=== PATIENT | female | born 1975 | race Hispanic/Latino ===

== ENCOUNTER → 2018-07-02 | Outpatient (CLI) | payer OTHER | END | disposition home or self-care (01) | LOC: RAH 15:27 | PROVIDERS: ATTEND Family Medicine | DX: Z12.31 Encounter for screening mammogram for malignant neoplasm of breast (principal) | CPT/HCPCS: 77067 ==

== ENCOUNTER → 2019-07-12 | Outpatient (CLI) | payer OTHER | END | disposition home or self-care (01) | LOC: RAH 11:38 | PROVIDERS: ATTEND Obstetrics & Gynecology | DX: Z12.31 Encounter for screening mammogram for malignant neoplasm of breast (principal) | CPT/HCPCS: 77067 ==

== ENCOUNTER 2019-12-30 19:42 | Inpatient (IN) | payer BC, OTHER ==
[~2019-12-30] VITALS: Ht 160 cm; Wt 73.2 kg
[2019-12-30] MEDS ORDERED: ONDANSETRON HCL 4 MG/2 ML VIAL ONE (20:12)
[2019-12-30] MEDS ORDERED: KETOROLAC TROMETHAMINE 30MG/ML ONE (20:12)
[2019-12-30] MEDS ORDERED: MORPHINE SULFATE 4 MG/1ML SYG ONE (20:13)
[2019-12-30] MEDS ORDERED: ACETAMINOPHEN EXTRA STRENGTH 500 MG TABLET ONE (20:13)
[2019-12-30 20:17] LABS: BASOPHILS % (AUTO) 0.3 % (0.0-5.0); EOSINOPHILS % (AUTO) 0.1 % (0.0-8.0); HEMATOCRIT 31.1 % (36-48); LYMPHOCYTES % (AUTO) 7.6 % (21.0-51.0); MEAN CORPUSCULAR HEMOGLOBIN 24.1 pg (27.0-33.0); MEAN CORPUSCULAR HGB CONC 31.5 g/dL (32.0-36.0); MEAN CORPUSCULAR VOLUME 76.6 fL (79-99); MONOCYTES % (AUTO) 4.1 % (3.0-13.0); NEUTROPHILS % (AUTO) 87.5 % (40.0-77.0); PLATELET COUNT (AUTO) 333 K/uL (130-400); RED BLOOD CELL COUNT(AUTO) 4.06 MIL/uL (4.00-5.50); RED CELL DISTRIBUTION WIDTH 15.3 % (11.0-15.5); WHITE BLOOD COUNT (AUTO) 14.2 K/uL (4.8-10.8)
[2019-12-30] MEDS ORDERED: SODIUM CHLORIDE 0.9% 50 ML IV ONE (20:43)
[2019-12-30] MEDS ORDERED: CEFAZOLIN SODIUM 1 GM VIAL ONE (20:43)
[2019-12-30 20:45] LABS: ALBUMIN 3.5 g/dL (3.5-5.0); BILIRUBIN,TOTAL 0.5 mg/dL (0.2-1.0); CREATININE 0.9 mg/dL (0.5-1.5)
[2019-12-30 21:31] LABS: APPEARANCE,URINE Clear (CLEAR); BILIRUBIN,URINE Negative (NEGATIVE); COLOR,URINE Yellow (YELLOW); GLUCOSE, URINE (UA) Negative (NEGATIVE); KETONES,URINE Negative (NEGATIVE); LEUKOCYTE ESTERASE ,URINE Trace (NEGATIVE); NITRATE,URINE Negative (NEGATIVE); OCCULT BLOOD,URINE Trace (NEGATIVE); PH,URINE >=9.0 (5.0-8.0); PROTEIN,URINE Negative (NEGATIVE); UROBILINOGEN,URINE 0.2 mg/dL (0.2-1.0)
[2019-12-30 21:33] LABS: HCG,QUAL RESULT NEGATIVE (NEGATIVE)
[2019-12-30] MEDS ORDERED: POTASSIUM CHLORIDE 20 MEQ ERTAB PO ONE (21:34)
[2019-12-30] MEDS ORDERED: VANCOMYCIN 1GM+NS 250ML 250 ML IV ONE (21:35)
[2019-12-30 21:47] LABS: BACTERIA,URINE Few /HPF (None Seen); MUCUS,URINE Rare LPF (None Seen); RBC,URINE 0-1 /HPF (0-1); SQUAMOUS EPITHELIAL CELL,UR Moderate /HPF (0-2)
[2019-12-30] MEDS ORDERED: ONDANSETRON HCL 4 MG/2 ML VIAL IV PRN (22:00)
[2019-12-30] MEDS ORDERED: LIDOCAINE HCL-MPF 1% 2ML VIAL IV PRN (22:00)
[2019-12-30] MEDS ORDERED: VANCOMYCIN PROTOCOL PER PHARMACY IV PRN (22:00)
[2019-12-30] MEDS ORDERED: POTASSIUM CHLORIDE 20MEQ/100ML 100 ML IV PRN (22:00)
[2019-12-30] MEDS ORDERED: ACETAMINOPHEN 325 MG TAB PO PRN (22:00)
[2019-12-30] MEDS ORDERED: POTASSIUM CHLORIDE 10% ELIXIR 20 MEQ/15 ML UDCUP PO PRN (22:00)
[2019-12-30] MEDS ORDERED: POTASSIUM CHLORIDE 20 MEQ ERTAB PO PRN (22:00)
[2019-12-30] MEDS ORDERED: SODIUM CHLORIDE 0.9% 1000ML 1,000 ML IV ONE (23:57)
[2019-12-30] MEDS ORDERED: ZOSYN 3.375GM+NS 50ML 50 ML IV ONE (23:57)
[2019-12-31] VITALS (26 sets, daily range): BP systolic 97–159; BP diastolic 60–96
[2019-12-31] MEDS ORDERED: ALPR0.255 PO (00:45)
[2019-12-31] MEDS ORDERED: AEC81 PO (00:45)
[2019-12-31] MEDS ORDERED: FLUT16H NASAL (00:45)
[2019-12-31] MEDS ORDERED: MONT10TA26 PO (00:45)
[2019-12-31] MEDS ORDERED: ASCO500C18 PO (00:45)
[2019-12-31] MEDS ORDERED: CITA10TA7 PO (00:45)
[2019-12-31] MEDS ORDERED: ALBU8.5H8 IH (00:45)
[2019-12-31] MEDS ORDERED: MV-M1TAB20 PO (00:45)
[2019-12-31] MEDS ORDERED: GABA-529 PO (00:45)
[2019-12-31] MEDS ORDERED: LEVO5TAB13 PO (00:45)
[2019-12-31] MEDS ORDERED: MELA5TAB21 PO (00:45)
[2019-12-31] MEDS: SODIUM CHLORIDE 0.9% 1000ML 1,000 ML IV SCH ×5 (01:38→17:47)
[2019-12-31] MEDS: MORPHINE SULFATE 4 MG/1ML SYG IV PRN ×6 (01:39→23:32)
[2019-12-31 03:49] LABS: HEMATOCRIT 25.8 % (36-48); MEAN CORPUSCULAR HEMOGLOBIN 24.1 pg (27.0-33.0); MEAN CORPUSCULAR HGB CONC 30.6 g/dL (32.0-36.0); MEAN CORPUSCULAR VOLUME 78.7 fL (79-99); RED BLOOD CELL COUNT(AUTO) 3.28 MIL/uL (4.00-5.50); RED CELL DISTRIBUTION WIDTH 15.9 % (11.0-15.5); WHITE BLOOD COUNT (AUTO) 12.7 K/uL (4.8-10.8)
[2019-12-31 04:00] LABS: CREATININE 0.9 mg/dL (0.5-1.5); POTASSIUM 4.3 mmol/L (3.5-5.1)
[2019-12-31] MEDS: ZOSYN 3.375GM+NS 50ML 50 ML IV SCH ×4 (04:53→20:26)
[2019-12-31] MEDS: DOCUSATE SODIUM 100 MG CAP PO SCH ×2 (09:00→20:26)
[2019-12-31] MEDS: FERROUS SULFATE 325 MG TABLET.DR PO SCH ×2 (09:00→20:26)
[2019-12-31] MEDS: MULTIVITAMIN TABLET PO SCH (09:00)
[2019-12-31] MEDS: VANCOMYCIN 1GM+NS 250ML 250 ML IV SCH ×2 (10:01→20:26)
[2019-12-31] MEDS ORDERED: LIDOCAINE HCL MPF 1% 5ML VIAL ONE (11:50)
[2019-12-31] MEDS ORDERED: PROPOFOL 10 MG/ML 20ML VIAL IV ONE (11:50)
[2019-12-31] MEDS ORDERED: SUCCINYLCHOLINE CHLORIDE 20 MG/ML 10 ML VIAL ONE (11:52)
--- NOTE | 2019-12-31 12:47 | NUR ---
Rec'd telephone notification from lab that pt has gram positive cocci in chains to blood cultures. Pt is currently on vancomycin and zosyn, being wheeled to OR for i&d of labial abscess, possible placement of wound vac. Notified hospitalist MANDI Becker, pending response.
[2019-12-31] MEDS ORDERED: FENTANYL CITRATE PF 50 MCG/1 ML 2ML VIAL ONE (13:05)
--- NOTE | 2019-12-31 14:08 | NUR ---
DCP CM met with pt discussed dc plans. Pt is independent prior to admission, lives at home w/children, mother lives close by. Denies any equipments/services. Feels safe to go back home, still drives and works, mother able to assist with transportation and needs as necessary. DC plan to home once stable. CM to cont to follow up. Addendum: 01/01/20 at 1409 by KAMALA AVILA LVN CM Amended: Links added.
[2019-12-31] MEDS ORDERED: ONDANSETRON HCL 4 MG/2 ML VIAL ONE (14:17)
[2019-12-31] MEDS ORDERED: MEPERIDINE-PF 25 MG/ML SYG ONE ×2 (14:18→15:10)
[2019-12-31] MEDS ORDERED: ONDANSETRON HCL 4 MG/2 ML VIAL IVP PRN (14:45)
[2019-12-31] MEDS: ACETAMINOPHEN 325 MG TAB PO PRN (20:53)
[2019-12-31] MEDS ORDERED: SODIUM CHLORIDE 0.9% 1000ML 1,000 ML IV ONE (22:00)
[2020-01-01 00:08] VITALS: BP 115/64
[2020-01-01] MEDS: SODIUM CHLORIDE 0.9% 1000ML 1,000 ML IV SCH ×3 (00:27→17:14)
[2020-01-01] MEDS: MORPHINE SULFATE 4 MG/1ML SYG IV PRN ×5 (01:18→22:01)
[2020-01-01 03:50] LABS: BASOPHILS % (AUTO) 0.4 % (0.0-5.0); EOSINOPHILS % (AUTO) 2.2 % (0.0-8.0); HEMATOCRIT 27.2 % (36-48); LYMPHOCYTES % (AUTO) 21.7 % (21.0-51.0); MEAN CORPUSCULAR HGB CONC 29.8 g/dL (32.0-36.0); MEAN CORPUSCULAR VOLUME 80.7 fL (79-99); MONOCYTES % (AUTO) 4.5 % (3.0-13.0); NEUTROPHILS % (AUTO) 70.8 % (40.0-77.0); PLATELET COUNT (AUTO) 293 K/uL (130-400); RED BLOOD CELL COUNT(AUTO) 3.37 MIL/uL (4.00-5.50); RED CELL DISTRIBUTION WIDTH 16.1 % (11.0-15.5); WHITE BLOOD COUNT (AUTO) 10.8 K/uL (4.8-10.8)
[2020-01-01 04:07] LABS: CREATININE 0.8 mg/dL (0.5-1.5); POTASSIUM 4.2 mmol/L (3.5-5.1)
[2020-01-01 04:08] VITALS: BP 134/72
[2020-01-01] MEDS: ACETAMINOPHEN 325 MG TAB PO PRN (04:29)
[2020-01-01] MEDS: ZOSYN 3.375GM+NS 50ML 50 ML IV SCH ×3 (04:29→19:23)
[2020-01-01 08:01] VITALS: BP 141/88
[2020-01-01] MEDS: MULTIVITAMIN TABLET PO SCH (08:50)
[2020-01-01] MEDS: FERROUS SULFATE 325 MG TABLET.DR PO SCH ×2 (08:50→19:23)
[2020-01-01] MEDS: DOCUSATE SODIUM 100 MG CAP PO SCH ×2 (08:50→19:23)
[2020-01-01] MEDS: VANCOMYCIN 1GM+NS 250ML 250 ML IV SCH ×2 (08:50→21:58)
[2020-01-01] MEDS: ENOXAPARIN SODIUM 40 MG/0.4 ML SYRINGE SQ SCH (08:50)
[2020-01-01] MEDS: HYDROCODONE/ACETAMINOPHEN 5/325 MG TAB PO PRN ×2 (09:30→15:38)
[2020-01-01 11:38] VITALS: BP 116/68
--- NOTE | 2020-01-01 12:45 | NUR ---
CM Note: [facility] pending approval CM met with pt discussed Dr Hernandez's recommendations for LTAC pt will need abx and woundcare pt has a woundvac, pt agreeable, EMILY signed for [facility]. Faxed order, clinicals, rev code, covid transfer form, confirmation received. Spoke to Elena chavez/Mikie, received request, will work on it, aware dc tomorrow/once approved. MOT semi-filled pending to be completed once approved, EMS filled out pending to be faxed w/current date once pt ready, primary nurse aware to call [facility] once pt ready to DC. Primary nurse aware. CM to cont to follow up.
[2020-01-01 17:51] VITALS: BP 110/64
[2020-01-01 20:00] VITALS: BP 117/68
[2020-01-01] MEDS ORDERED: COMPOUND IV REFRIGERATED 1 EACH IVSOLN MISC PRN (21:45)
[2020-01-02 00:09] VITALS: BP 122/76
[2020-01-02] MEDS: MORPHINE SULFATE 4 MG/1ML SYG IV PRN ×3 (00:36→04:37)
[2020-01-02] MEDS: HYDROCODONE/ACETAMINOPHEN 5/325 MG TAB PO PRN (01:39)
[2020-01-02] MEDS: ACETAMINOPHEN 325 MG TAB PO PRN (01:40)
[2020-01-02] MEDS ORDERED: BENZOCAINE/MENTH/CETYLPYRD CL 1 EACH LOZENGE MM PRN (01:45)
[2020-01-02 03:33] LABS: BASOPHILS % (AUTO) 0.6 % (0.0-5.0); EOSINOPHILS % (AUTO) 6.3 % (0.0-8.0); LYMPHOCYTES % (AUTO) 27.3 % (21.0-51.0); MEAN CORPUSCULAR HEMOGLOBIN 23.8 pg (27.0-33.0); MEAN CORPUSCULAR HGB CONC 30.8 g/dL (32.0-36.0); MEAN CORPUSCULAR VOLUME 77.4 fL (79-99); MONOCYTES % (AUTO) 5.3 % (3.0-13.0); PLATELET COUNT (AUTO) 305 K/uL (130-400); RED BLOOD CELL COUNT(AUTO) 3.23 MIL/uL (4.00-5.50); RED CELL DISTRIBUTION WIDTH 16.1 % (11.0-15.5); WHITE BLOOD COUNT (AUTO) 6.2 K/uL (4.8-10.8)
[2020-01-02 03:45] LABS: CREATININE 0.7 mg/dL (0.5-1.5); POTASSIUM 3.6 mmol/L (3.5-5.1)
[2020-01-02 03:47] VITALS: BP 118/72
[2020-01-02] MEDS: VANCOMYCIN 750MG + NS 250 ML IV SCH ×4 (04:34→15:54)
[2020-01-02] MEDS: ZOSYN 3.375GM+NS 50ML 50 ML IV SCH (04:34)
[2020-01-02] MEDS: SODIUM CHLORIDE 0.9% 1000ML 1,000 ML IV SCH (04:34)
[2020-01-02 08:16] VITALS: BP 130/70
--- NOTE | 2020-01-02 10:00 | NUR ---
CM Note: [facility] approval CM spoke to Elena Luna, pt has approval. MOT filled out, pending and tawanda callahan to sign. EMS arranged for today, primary nurse to call [facility] once pt ready to DC. Primary nurse Bernard COVARRUBIAS and charge nurse Sisi COVARRUBIAS aware. CM to cont to follow up.
[2020-01-02 11:30] VITALS: BP 120/65
[2020-01-02] MEDS: FERROUS SULFATE 325 MG TABLET.DR PO SCH (12:32)
[2020-01-02] MEDS: DOCUSATE SODIUM 100 MG CAP PO SCH (12:32)
[2020-01-02] MEDS: MULTIVITAMIN TABLET PO SCH (12:33)
[2020-01-02] MEDS: ENOXAPARIN SODIUM 40 MG/0.4 ML SYRINGE SQ SCH (12:34)
[2020-01-02 16:05] VITALS: BP 136/56
--- NOTE | 2020-01-02 18:30 | NUR ---
NOTE DSICHARGE INSTRUCTIONS GIVE AT THIS TIME. VERBALIED UDNERSTANDING. GOING TO [facility] FOR CONTINUATION OF THERAPY.
== END 2020-01-02 18:35 | DRG 854 ==
LOC: EDH 19:42 → EDHIP 21:47 → 3AH 23:41
PROVIDERS: ADMIT Internal Medicine; ATTEND Internal Medicine
PROC: 0U9M0ZZ Drainage of Vulva, Open Approach (ICD-10-PCS; principal; 2019-12-31 13:15)
PROC: 0J9C0ZZ Drainage of Pelvic Region Subcutaneous Tissue and Fascia, Open Approach (ICD-10-PCS; 2019-12-31 13:15)
DX: A41.89 Other specified sepsis (principal); N76.4 Abscess of vulva; N39.0 Urinary tract infection, site not specified; L02.818 Cutaneous abscess of other sites; D50.9 Iron deficiency anemia, unspecified; N76.2 Acute vulvitis; M79.10 Myalgia, unspecified site; E87.6 Hypokalemia; J45.909 Unspecified asthma, uncomplicated; M19.90 Unspecified osteoarthritis, unspecified site; F32.9 Major depressive disorder, single episode, unspecified; F41.9 Anxiety disorder, unspecified; M81.0 Age-related osteoporosis without current pathological fracture; R53.81 Other malaise
CPT/HCPCS: 36415; 72192; 80048; 80053; 80202; 81001; 81025; 83605; 83735; 84145; 84484; 85025; 85027; 87040; 87070; 87076; 87077; 87088; 87186; 87205; 93005; 97039; G0378; J0330; J0690; J1650; J1885; J2175; J2270; J2405; J2543; J2704; J3010; J3370; J3490; J7030; J7050

== ENCOUNTER 2022-02-04 17:55 | Emergency (ER) | payer BC ==
[~2022-02-04] VITALS: Ht 162.6 cm; Wt 71.7 kg
[~2022-02-04 17:55] MED LIST: AEC81 PO; ALBU8.5H8 IH; ALPR0.255 PO; ASCO500C18 PO; CITA10TA89 PO; FLUT16H NASAL; GABA-529 PO; LEVO5TAB13 PO; MELA5TAB21 PO; MONT-39 PO; MV-M1TAB20 PO
[2022-02-04 17:57] VITALS: BP 144/79
[2022-02-04] MEDS ORDERED: GUAIFENESIN-CODEINE 5 ML SYRUP PO ONE (18:30)
[2022-02-04] MEDS ORDERED: ACETAMINOPHEN 500 MG TABLET PO ONE (18:30)
[2022-02-04] MEDS ORDERED: 0.9%NACL 1000ML 1,000 ML IV SCH (18:30)
[2022-02-04 18:45] LABS: BASOPHILS % (AUTO) 0.3 % (0.0-5.0); EOSINOPHILS % (AUTO) 1.7 % (0.0-8.0); HEMATOCRIT 30.4 % (36-48); LYMPHOCYTES % (AUTO) 15.7 % (21.0-51.0); MEAN CORPUSCULAR HEMOGLOBIN 21.8 pg (27.0-33.0); MEAN CORPUSCULAR HGB CONC 30.3 g/dL (32.0-36.0); NEUTROPHILS % (AUTO) 77.9 % (40.0-77.0); PLATELET COUNT (AUTO) 368 K/uL (130-400); RED BLOOD CELL COUNT(AUTO) 4.22 MIL/uL (4.00-5.50); RED CELL DISTRIBUTION WIDTH 18.5 % (11.0-15.5); WHITE BLOOD COUNT (AUTO) 7.3 K/uL (4.8-10.8)
[2022-02-04 18:53] LABS: CARBON DIOXIDE 29 mmol/L (21-32); CHLORIDE 99 mmol/L (101-111); CREATININE 0.6 mg/dL (0.5-1.5); GLOMERULAR FILTR. RATE CALC 114 mL/min (>60); GLUCOSE,RANDOM 108 mg/dL (70-105); POTASSIUM 3.7 mmol/L (3.5-5.1); SODIUM SERUM 136 mmol/L (136-145); UREA NITROGEN, BLOOD 14 mg/dL (7-18)
[2022-02-04 18:58] LABS: ALANINE AMINOTRANSFERASE 23 U/L (12-78); ALBUMIN 4.3 g/dL (3.5-5.0); ASPARTATE AMINOTRANSFERASE 16 U/L (10-37); TOTAL PROTEIN, SERUM 8.7 g/dL (6.0-8.3)
[2022-02-04 19:07] LABS: CRP QUANTITATIVE < 2.00 mg/L (0.00-9.0)
[2022-02-04] MEDS ORDERED: D-ME1POW16 PO (20:06)
== END 2022-02-04 20:40 | disposition home or self-care (01) ==
LOC: EDH 17:55
DX: J06.9 Acute upper respiratory infection, unspecified (principal); D64.9 Anemia, unspecified; R03.0 Elevated blood-pressure reading, without diagnosis of hypertension; E86.0 Dehydration; Z20.822 Contact with and (suspected) exposure to COVID-19; F41.9 Anxiety disorder, unspecified; J45.909 Unspecified asthma, uncomplicated; F32.A Depression, unspecified; Z79.899 Other long term (current) drug therapy; Z79.82 Long term (current) use of aspirin
CPT/HCPCS: 99283; 96360; 87635; 80053; 85025; 87880; 87804 ×2; 86140; 36415; C9803; J7030